=== PATIENT | female | born 1975 | race African-American/Black ===

== ENCOUNTER 2018-12-16 10:48 | Emergency (ER) | payer OTHER ==
[~2018-12-16] VITALS: Ht 165.1 cm; Wt 100.0 kg
[2018-12-16 10:55] VITALS: BP 159/96
== END 2018-12-16 13:20 | disposition left against medical advice (07) ==
LOC: ER 10:48
DX: Z53.21 Procedure and treatment not carried out due to patient leaving prior to being seen by health care provider (principal)

== ENCOUNTER 2022-10-29 08:07 | Emergency (ER) | payer MEDICAID, OTHER ==
[~2022-10-29] VITALS: Ht 165.1 cm; Wt 104.0 kg
[2022-10-29 08:13] VITALS: BP 144/95
== END 2022-10-29 14:59 | disposition left against medical advice (07) ==
LOC: ER 08:07
DX: Z53.21 Procedure and treatment not carried out due to patient leaving prior to being seen by health care provider (principal)
CPT/HCPCS: 93005